=== PATIENT | male | born 1955 | race Caucasian/White ===

== ENCOUNTER → 2016-07-27 | Outpatient (CLI) | payer BC ==
--- NOTE | 2016-07-27 18:30 | DX ---
Cervical spine 2 views History: Follow up fusion. Comparison: Cervical spine from May 01, 2016. Findings: ACDF at C6-C7 appears stable. 2 to 3 mm anterolisthesis of C5 on C6 is stable. The cervicot horacic junction is suboptimally visualized due to overlapping structures. No fracture is identified. Mild vertebral and uncovertebral spondylosis at C4-C5 and C5-C6 are stable. There is no prevertebral soft tissue swelling. Atherosclerotic calcification is present in the carotid arteries. Impression: 1. Stable ACDF at C6-C7. 2. Stable grade 1 anterolisthesis of C5 on C6. 3. Carotid atherosclerosis.
== END ==
LOC: FIMAGING 16:09
PROVIDERS: ATTEND Orthopaedic Surgery Orthopaedic Surgery of the Spine
DX: Z09 Encounter for follow-up examination after completed treatment for conditions other than malignant neoplasm (principal); Z98.1 Arthrodesis status; M43.12 Spondylolisthesis, cervical region; I65.29 Occlusion and stenosis of unspecified carotid artery

== ENCOUNTER → 2016-10-27 | Outpatient (CLI) | payer BC | LOC: FIMAGING 13:58 | PROVIDERS: ATTEND Orthopaedic Surgery Orthopaedic Surgery of the Spine | DX: Z47.89 Encounter for other orthopedic aftercare (principal); Z98.1 Arthrodesis status ==

== ENCOUNTER → 2017-06-02 | Outpatient (CLI) | payer BC | LOC: FIMAGING 15:45 | PROVIDERS: ATTEND Orthopaedic Surgery Orthopaedic Surgery of the Spine | DX: M54.12 Radiculopathy, cervical region (principal); I77.9 Disorder of arteries and arterioles, unspecified; Z98.1 Arthrodesis status ==